=== PATIENT | male | born 1980 | race Caucasian/White ===

== ENCOUNTER 2016-11-19 20:18 | Emergency (ER) | payer BC ==
[2016-11-19 20:27] VITALS: BP 123/71
--- NOTE | 2016-11-19 20:54 | UC ---
Eye Complaint HPI - HPI Summary HPI Summary: 36 year old male complaining of right lower eye lid swelling and pain, which the patient woke up with Saturday. Denies blurred vision, discomfort within the eye, or increased discharge. - History of Current Complaint Chief Complaint: UCEye Stated Complaint: INFLAMED EYELID Time Seen by Provider: 11/19/16 20:38 Hx Obtained From: Patient Severity Initially: Mild Severity Currently: Mild Location of Injury: Eye Lid (lower) - Right Alleviating Factor(s): Nothing Associated Signs And Symptoms: Positive: Negative - Allergies/Home Medications Allergies/Adverse Reactions: Allergies Allergy/AdvReac Type Severity Reaction Status Date / Time No Known Allergies Allergy Verified 11/19/16 20:26 PMH/Surg Hx/FS Hx/Imm Hx Previously Healthy: Yes Endocrine History Of: Denies: Diabetes, Thyroid Disease Cardiovascular History Of: Denies: Cardiac Disorders, Hypertension Respiratory History Of: Denies: COPD, Asthma GI/ History Of: Denies: Ulcer - Surgical History Surgical History: Yes Surgery Procedure, Year, and Place: 2001 [place] Teeth removal - Family History Known Family History: Positive: Other - Father- "Thyroid, thhyroid removal" - Social History 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 Lives: Alone Alcohol Use: None Substance Use Type: None Smoking Status (MU): Never Smoked Tobacco - Immunization History Most Recent Tetanus Shot: Unsure Review of Systems Constitutional: Fever Skin: Negative Eyes: Other - Right lower lid tenderness and swelling ENT: Negative Respiratory: Negative Cardiovascular: Negative Gastrointestinal: Negative Genitourinary: Negative Motor: Negative Neurovascular: Negative Musculoskeletal: Negative Neurological: Negative Psychological: Negative All Other Systems Reviewed And Are Negative: Yes Physical Exam Triage Information Reviewed: Yes Appearance: Well-Appearing, No Pain Distress, Well-Nourished Vital Signs: Initial Vital Signs Temp 98.6 F 11/19/16 20:23 Pulse 73 11/19/16 20:23 Resp 16 11/19/16 20:23 BP 123/71 11/19/16 20:23 Pulse Ox 100 11/19/16 20:23 Vital Signs Reviewed: Yes Eye Exam: Normal Eyes: Positive: Conjunctiva Clear ENT: Positive: Other: - Right lower lid swelling and slight erythema Dental Exam: Normal Neck exam: Normal Neck: Positive: Supple, Nontender, No Lymphadenopathy Respiratory: Positive: Chest non-tender, Lungs clear, Normal breath sounds Cardiovascular: Positive: RRR, No Murmur, Pulses Normal Abdomen Description: Positive: Nontender, No Organomegaly, Soft Bowel Sounds: Positive: Present Musculoskeletal: Positive: Strength Intact, ROM Intact Neurological: Positive: Alert Psychological Exam: Normal Skin Exam: Normal Eye Complaint Course/Dx - Differential Dx/Diagnosis Provider Diagnoses: Right lower lid stye Discharge - Discharge Plan Condition: Stable Disposition: HOME Prescriptions: Erythromycin OPTH OINT* 1 applic RIGHT EYE TID #1 ophth.oint Patient Education Materials: Aubrie (ED) Referrals: Vincent Nance MD [Primary Care Provider] - If Needed
== END 2016-11-19 21:27 | disposition home or self-care (01) ==
LOC: UCEAST 20:18
DX: H00.012 Hordeolum externum right lower eyelid (principal)
CPT/HCPCS: 99212; G0463

== ENCOUNTER 2017-02-03 20:07 | Emergency (ER) | payer BC ==
[2017-02-03 20:30] VITALS: BP 116/69
--- NOTE | 2017-02-03 21:23 | UC ---
Skin Complaint HPI - HPI Summary HPI Summary: The patient comes in today for: 1. Cat scratch: Onset: 1 week ago. Palliative/provocative: Pressure makes it worse. Quality: Ache Region: Left index, middle phalanx. Severity: 2/10 Time: Constant. Associated symptoms: Fevers: None. Event: While playing with the cat, the cat pounded on him and broke the skin. He did not think it was anything to worry about, but over time there was superficial abscess forming. Flexing did not make the pain worse. * - History of Current Complaint Chief Complaint: UCBiteInjury Time Seen by Provider: 02/03/17 21:15 Stated Complaint: CAT SCRATCH Hx Obtained From: Patient - Allergy/Home Medications Allergies/Adverse Reactions: Allergies Allergy/AdvReac Type Severity Reaction Status Date / Time No Known Allergies Allergy Verified 11/19/16 20:26 Review of Systems Constitutional: Negative Skin: Rash Eyes: Negative ENT: Negative Respiratory: Negative Cardiovascular: Negative Gastrointestinal: Negative Genitourinary: Negative All Other Systems Reviewed And Are Negative: Yes PMH/Surg Hx/FS Hx/Imm Hx Previously Healthy: No - Acne Endocrine History Of: Denies: Diabetes, Thyroid Disease, Hyperthyroidism, Hypothyroidism, Dyslipidemia Cardiovascular History Of: Denies: Cardiac Disorders, Hypertension, Pacemaker/ICD, Myocardial Infarction , Congestive Heart Failure, Atrial Fibrillation, Deep Vein Thrombosis, Bleeding Disorders Respiratory History Of: Denies: COPD, Asthma, Bronchitis, Pneumonia, Pulmonary Embolism GI/ History Of: Denies: Gastroesophageal Reflux, Ulcer, Gastrointestinal Bleed, Gall Bladder Disease, Kidney Stones, Diverticulitis, Renal Disease, Urosepsis Neurological History Of: Denies: TIA, CVA, Dementia, Seizures, Migraine Psychological History Of: Denies: Anxiety, Depression, Bipolar Disorder, Schizophrenia, Post Traumatic Stress Disorder Cancer History Of: Denies: Lung Cancer, Colorectal Cancer, Breast Cancer, Prostate Cancer, Cervical Cancer Other History Of: Negative For: HIV, Hepatitis B, Hepatitis C, Anticoagulant Therapy - Surgical History Surgical History: Yes Surgery Procedure, Year, and Place: 2001 [place] Teeth removal - Family History Known Family History: Positive: Other - Father- "Thyroid, thhyroid removal" Negative: Cardiac Disease, Hypertension - Social History Occupation: Employed Full-time Alcohol Use: None Substance Use Type: None Smoking Status (MU): Never Smoked Tobacco - Immunization History Most Recent Tetanus Shot: Unsure Physical Exam Triage Information Reviewed: Yes Appearance: Well-Appearing, No Pain Distress, Well-Nourished Vital Signs: Initial Vital Signs Temp 98.5 F 02/03/17 20:25 Pulse 63 02/03/17 20:25 Resp 16 02/03/17 20:25 BP 116/69 02/03/17 20:25 Pulse Ox 98 02/03/17 20:25 Vital Signs Reviewed: Yes Eyes: Positive: Conjunctiva Clear. Negative: Discharge ENT: Positive: Hearing grossly normal. Negative: Pharyngeal erythema, Nasal congestion, Nasal drainage, TM bulging, TM dull, TM red, Tonsillar swelling, Tonsillar exudate Dental: Negative: Gross Decay/Caries @, Dental Fracture @ Neck: Positive: Supple, Nontender, No Lymphadenopathy. Negative: Nuchal Rigidity Respiratory: Positive: Lungs clear, No respiratory distress, No accessory muscle use. Negative: Rhonchi, Wheezing Cardiovascular: Positive: RRR, No Murmur Abdomen Description: Positive: Nontender, No Organomegaly, Soft. Negative: Distended, Guarding Musculoskeletal: Positive: Strength Intact, ROM Intact, No Edema Neurological: Positive: Alert, Muscle Tone Normal Psychological: Positive: Age Appropriate Behavior, Consolable Skin: Positive: rashes - volar surface of the middle phalanx of the left index finger was positive for 2-3 mm abscess. There was redness of the phalanx. It was unroofed and culture taken.. Negative: breakdown Course/Dx - Course Course Of Treatment: The patient had a culture taken after the roof of the abscess was unroofed. He was given Zithromax 500 mg now. - Diagnoses Provider Diagnoses: Cat scratch, abscess of the middle phalanx, Discharge - Discharge Plan Condition: Stable Disposition: HOME Patient Education Materials: Abscess (ED) Referrals: Vincent Nance MD [Primary Care Provider] - If Needed (Please follow up with your primary care provider in about a week if you are not well-healed. Finish the antibiotics and use warm compresses/soaks for 20 minutes several times a day. If you get worse, please be seen sooner. )
[2017-02-03] MEDS ORDERED: Azithromycin TAB* 250 MG PO ONE (21:43)
[2017-02-03] MEDS ORDERED: Tetan/Diph/Pertus SYR(Tdap)* 0.5 ML SYR(BOOSTRIX) use SYR IM ONE (21:52)
== END 2017-02-03 21:58 | disposition home or self-care (01) ==
LOC: UCEAST 20:07
DX: L02.512 Cutaneous abscess of left hand (principal); W55.03XA Scratched by cat, initial encounter
CPT/HCPCS: 87070; 87077; 87186; 87205; 87640; 87641; 90471; 90715; 99212; A9270-GY; G0463

== ENCOUNTER 2017-04-25 13:46 | Emergency (ER) | payer SELFPAY ==
[2017-04-25] MEDS ORDERED: Morphine INJ* 4 MG/ML 1 ML SYRINGE IM ONE (14:32)
[2017-04-25] MEDS ORDERED: Ondansetron ODT TAB* 4 MG PO ONE (14:32)
--- NOTE | 2017-04-25 15:28 | RAD ---
HISTORY: Right hand trauma COMPARISONS: None VIEWS: 5, Frontal, lateral, and oblique views of the right hand FINDINGS: BONE DENSITY: Normal. BONES: There is a fracture through the head of the proximal phalanx of the fifth digit with approximately 100% medial (ulnar) placement of the distal fragment with suspected the proximal fragment. Additionally, there is a transverse fracture through the distal phalanx with minimal displacement. Additionally, there is an oblique fracture through the fifth metacarpal JOINTS: There is no arthropathy. ALIGNMENT: There is no dislocation. SOFT TISSUES: Unremarkable. OTHER FINDINGS: None. IMPRESSION: 1. DISPLACED FRACTURE OF THE PROXIMAL PHALANX OF THE FIFTH DIGIT. 2. NONDISPLACED FRACTURES OF THE DISTAL PHALANX AND METACARPAL OF THE FIFTH DIGIT
[2017-04-25] MEDS ORDERED: ceFAZolin 1 GM in Dextrose (*) 1 GM/50 ML BAG IVPB ONE ×2 (17:28→20:09)
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
[2017-04-25 17:59] LABS: Hematocrit 51 % (42-52); Hemoglobin 16.8 g/dl (14.0-18.0); Mean Corpuscular HGB Conc 33 g/dl (31-36); Mean Corpuscular Hemoglobin 30 pg (27-31); Mean Corpuscular Volume 92 fL (80-94); Mean Platelet Volume 9 um3 (7.4-10.4); Red Blood Count 5.55 10^6/ul (4.0-5.4); Red Cell Distribution Width 13 % (10.5-15); White Blood Count 9.3 10^3/ul (3.5-10.8)
[2017-04-25] MEDS ORDERED: Tetanus-Diptheria Toxoids* 0.5 ML SYRINGE IM ONE (18:11)
[2017-04-25 18:19] LABS: Albumin 4.7 g/dL (3.2-5.2); BUN/Creatinine Ratio 13.6 (8-20); Calcium 9.5 mg/dL (8.6-10.3); EGFR African American 104.5 (>60); EGFR Non-African American 81.3 (>60); Globulin 2.7 g/dL (2-4); Potassium 3.5 mmol/L (3.5-5.0); Total Bilirubin 0.6 mg/dL (0.2-1.0); Total Protein 7.4 g/dL (6.4-8.9)
[2017-04-25] MEDS ORDERED: Cephalexin CAP* 500 MG PO ONE (19:25)
[2017-04-25] MEDS ORDERED: oxyCODONE/Acetamin 5/325 MG* TAB PO ONE ×2 (19:27)
[2017-04-25 20:27] VITALS: BP 119/56
== END 2017-04-25 20:10 | disposition home or self-care (01) ==
LOC: MERGE 13:46 → ED 13:46
DX: S62.616B Displaced fracture of proximal phalanx of right little finger, initial encounter for open fracture (principal); S80.212A Abrasion, left knee, initial encounter; S62.396A Other fracture of fifth metacarpal bone, right hand, initial encounter for closed fracture; Y93.55 Activity, bike riding; Y92.89 Other specified places as the place of occurrence of the external cause
CPT/HCPCS: 12002; 36415; 80053; 85025; 99284; A9270-GY; J0690; J2270

== ENCOUNTER 2017-04-26 12:13 | Day surgery (SDC) | payer SELFPAY ==
[~2017-04-26 12:13] MED LIST: Buffered Lidocaine 0.9% SYRIN* 5 ML/SYR SYRINGE INTRADERM ONE; DiMENhydriNATE IV* 50 MG/ML VIAL IV PUSH PRN; Famotidine IV* 10 MG/ML 2 ML (20 mg) IV ONE; HYDROmorphone* 1 MG/ML 1 ML SYR IV PRN; oxyCODONE/Acetamin 5/325 MG* TAB PO PRN
[2017-04-26] MEDS ORDERED: ceFAZolin 2 GM PREMIX(*) 2 GM/50 ML BAG IVPB ONE (12:27)
[2017-04-26] MEDS ORDERED: Famotidine IV* 10 MG/ML 2 ML (20 mg) ONE (13:21)
[2017-04-26] MEDS ORDERED: Lidocaine 1% INJ* 10 MG/ML 30 ML SDV ONE (14:17)
[2017-04-26] MEDS ORDERED: Ondansetron INJ* 2 MG/ML VIAL ONE (14:26)
[2017-04-26] MEDS ORDERED: Dexamethasone IV* 4 MG/ML 1 ML (4 MG) ONE (14:26)
[2017-04-26] MEDS ORDERED: Midazolam* 1 MG/ML 5 ML VIAL (5 MG) ONE (14:26)
[2017-04-26] MEDS ORDERED: fentaNYL* 50 MCG/ML 2 ML VIAL (100 MCG VIAL) ONE ×2 (14:26→15:00)
[2017-04-26] MEDS ORDERED: Lidocaine 2% PF * 5 ML VIAL ONE (14:26)
[2017-04-26] MEDS ORDERED: Ketorolac INJ* 30 MG/ML 1 ML VIAL ONE (14:26)
[2017-04-26] MEDS ORDERED: Propofol* 10 MG/ML 20 ML BTL IV PUSH ONE (14:26)
[2017-04-26] MEDS ORDERED: HYDROmorphone* 1 MG/ML 1 ML SYR ONE (15:39)
[2017-04-26 17:08] VITALS: BP 134/83
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
--- NOTE | 2017-04-29 16:27 | RAD ---
INDICATION: RIGHT fifth finger fracture sustained in traumatic injury. COMPARISON: April 25, 2017 TECHNIQUE: 5 minutes 16 seconds fluoroscopy. FINDINGS: Spot images document placement of fixation wires across the fifth metacarpal, proximal phalanx, and distal phalanx fractures with gross anatomic alignment resulting. Fixation wires traverse the distal interphalangeal joint. IMPRESSION: Procedural fluoroscopy. CPT II Codes: 6045F
== END 2017-04-26 17:17 | disposition home or self-care (01) ==
LOC: OREAST 12:13
PROVIDERS: ATTEND Orthopaedic Surgery
DX: S62.636B Displaced fracture of distal phalanx of right little finger, initial encounter for open fracture (principal); S62.616B Displaced fracture of proximal phalanx of right little finger, initial encounter for open fracture; S62.396A Other fracture of fifth metacarpal bone, right hand, initial encounter for closed fracture; V13.4XXA Pedal cycle driver injured in collision with car, pick-up truck or van in traffic accident, initial encounter; Y93.55 Activity, bike riding; Y92.488 Other paved roadways as the place of occurrence of the external cause; Z86.14 Personal history of Methicillin resistant Staphylococcus aureus infection
CPT/HCPCS: 76000; C1776; J0690; J1100; J1170; J1885; J2001; J2250; J2405; J2704; J3010

== ENCOUNTER → 2019-04-29 09:55 | Day surgery (SDC) | payer BC ==
[~2019-04-29 09:55] MED LIST changes: -Buffered Lidocaine 0.9% SYRIN* 5 ML/SYR SYRINGE INTRADERM ONE; +Buffered Lidocaine 1% SYRIN* 1 ML/SYRINGE INTRADERM ONE; +Dexamethasone IV* 4 MG/ML 1 ML (4 MG) ONE; -DiMENhydriNATE IV* 50 MG/ML VIAL IV PUSH PRN; +Famotidine IV* 10 MG/ML 2 ML (20 mg) ONE; +Gelfoam Sponge SIZE 100* SPONGE ONE; +HYDROcodone/ACET. 7.5/325 LIQ* 15 ML UDC ONE; -HYDROmorphone* 1 MG/ML 1 ML SYR IV PRN; +Lactated Ringers 1000 ML Bag* 1,000 ML IV SCH; +Lidocaine 2% MPF* 2 ML VIAL ONE; +Lidocaine 2% w/ EPI 1:200,000* 20 ML VIAL ONE; +Midazolam* 1 MG/ML 5 ML VIAL (5 MG) ONE; +Naloxone* 0.4 MG/ML 1 ML VIAL IV PRN; +Ondansetron INJ* 2 MG/ML VIAL IV PRN; +Ondansetron INJ* 2 MG/ML VIAL ONE; +Oxymetazoline 0.05% NASAL SPR* 15 ML BTL ONE; +Propofol* 10 MG/ML 20 ML BTL ONE; +fentaNYL* 50 MCG/ML 2 ML VIAL (100 MCG VIAL) IV PRN; +fentaNYL* 50 MCG/ML 2 ML VIAL (100 MCG VIAL) ONE
--- NOTE | 2019-04-29 14:17 | OP ---
OPERATIVE REPORT: DATE OF OPERATION: 04/29/19 DATE OF : 80 SURGEON: Jefry Real MD. PRE-OP DIAGNOSIS: Deviated nasal septum with nasal dyspnea, hypertrophied turbinates. POST-OP DIAGNOSIS: Deviated nasal septum with nasal dyspnea, hypertrophied turbinates. OPERATIVE PROCEDURE: Septoplasty and submucosal resection of inferior turbinates. BRIEF HISTORY: This 39-year-old gentleman presenting with nasal dyspnea, previous medical management has not helped much because he had an obvious nasal deformity internal. DESCRIPTION OF PROCEDURE: The patient was taken to the operating room and the patient was intubated with LMA. Nose was decongested with Afrin-placed pledgets. Subsequently, 2% lidocaine with epinephri ne was infiltrated. A left hemitransfixion incision was created. Mucoperichondrial flap was elevate d. Quadrangular cartilage was then disarticulated along the vomer ethmoid complex, along with the max illary crest appreciated. Portions of the crest were removed. A portion of the vomer ethmoidal comp diego was removed. This allowed quadrangular cartilage to swing. Clearly, its concave surface was mul tiple times scored so as to release the concavity. It was replaced in the midline and secured with multiple mattress sutures of chromic. The hemitransf ixion incision was then closed. A Wil splint was applied and secured with 2-0 silk. Submucosal resection was carried out by elevating the submucosal tissue and subsequently resecting ou t some portions of the submucosal bone and then subsequently cauterizing the area to enhance hemostas is. A small piece of Gelfoam was then placed to pack the nose to reduce epistaxis. The patient was then awakened and sent to recovery room in stable condition. COUNTS: Instrument and sponge counts were correct. BLOOD LOSS: Minimal. [id number]/[facility] #: [id number]
[2019-04-29 15:20] VITALS: BP 135/96
== END | disposition home or self-care (01) ==
LOC: OR 09:55
PROVIDERS: ATTEND Otolaryngology
DX: J34.2 Deviated nasal septum (principal); J34.3 Hypertrophy of nasal turbinates; F41.8 Other specified anxiety disorders
CPT/HCPCS: A9270-GY; J1100; J2250; J2405; J2704; J3010